=== PATIENT | female | born 1965 | race Caucasian/White ===

== ENCOUNTER 2016-12-22 05:35 | Outpatient (CLI) | payer SELFPAY ==
[~2016-12-22] VITALS: Ht 152.4 cm; Wt 117.5 kg
== END 2016-12-22 14:58 ==
LOC: PREOP 05:35
PROVIDERS: ATTEND Surgery
DX: Z01.818 Encounter for other preprocedural examination (principal); R19.5 Other fecal abnormalities

== ENCOUNTER 2016-12-26 07:26 | Day surgery (SDC) | payer OTHER ==
[~2016-12-26] VITALS: Ht 152.4 cm; Wt 122.0 kg
[2016-12-26 07:35] VITALS: BP 128/90
[2016-12-26] MEDS ORDERED: NALOXONE 0.4 MG/ML 1 ML (NARCAN) VIAL IVP PRN (07:45)
[2016-12-26] MEDS ORDERED: FLUMAZENIL (ROMAZICON) 0.1 MG/ML 5 ML VIAL INJ PRN (07:45)
[2016-12-26] MEDS ORDERED: NS IV 1000 ML 1,000 ML IV PRN (07:45)
[2016-12-26] MEDS ORDERED: NAPR550T PO (08:12)
[2016-12-26] MEDS ORDERED: IBUP200C75 PO (08:12)
[2016-12-26] MEDS ORDERED: fentaNYL INJECTION 100 MCG/2 ML AMP ONE (09:24)
[2016-12-26] MEDS ORDERED: proPOfol 200 MG/20 ML (DIPRIVAN) VIAL IV ONE (09:24)
--- NOTE | 2016-12-26 09:40 | Progress Note-Pre Operative ---
Pre-Operative Progress Note H&P Reviewed The H&P was reviewed, patient examined and no changes noted. Time Seen by Provider: 09:40 Date H&P Reviewed: Dec 26, 2016 Time H&P Reviewed: 09:40 Pre-Operative Diagnosis: change in bowel habits JOSE A LARSEN DO Dec 26, 2016 9:40 am
--- NOTE | 2016-12-26 10:13 | Discharge Inst-Simple/Standard ---
Discharge Inst-Standard Patient Instructions/Follow Up Plan of Care/Instructions/FU: Follow up with Dr. Mcintosh in 2 weeks Repeat colonoscopy in 5 years or sooner if changes to Bowel habits or blood in stool. Activity as Tolerated: Yes Discharge Diet: No Restrictions DANE GARCIA APRN Dec 26, 2016 10:13
--- NOTE | 2016-12-26 10:14 | Progress Note-Post Operative ---
Post-Operative Progess Note Surgeon (s)/Fast Food Manager (s) Surgeon JOSE A LARSEN DO Fast Food Manager: na Pre-Operative Diagnosis change in bowel habits Post-Operative Diagnosis colon polyps Procedure & Operative Findings Date of Procedure 12/26/16 Procedure Performed/Findings colonoscopy with hot bx polypectomy x 2 Anesthesia Type per green lumber grader Estimated Blood Loss Estimated blood loss (mL): none Specimens/Packing Specimens Removed ascending colon polyp x 2 JOSE A LARSEN DO Dec 26, 2016 10:14 am
[2016-12-26 10:35] VITALS: BP 127/62
[2016-12-26 10:57] VITALS: BP 117/69
--- NOTE | 2016-12-26 11:33 | OPERATIVE REPORT ---
DATE OF SERVICE: 12/26/2016 PREOPERATIVE DIAGNOSIS: Change in bowel habits. POSTOPERATIVE DIAGNOSIS: Ascending colon polyps. PROCEDURE: Colonoscopy with hot biopsy polypectomy x2. SURGEON: Dayna ANESTHESIA: Per FIXTURE REPAIRER FABRICATOR. ESTIMATED BLOOD LOSS: None. COMPLICATIONS: None. SPECIMEN: Ascending colon polyps. INDICATIONS: Patient is a 51-year-old female who has not had a screening colonoscopy. She has had a change in bowel habits. She understand the risks and benefits of procedure and wants to proceed with procedure. Consent was done and in the chart. PROCEDURE: Patient was taken to the endoscopy suite, placed in the left lateral recumbent position. A timeout was performed. Digital rectal exam was performed. There were no palpable polyps, masses or ulcerations. Scope was inserted into the rectum and advanced all the way to the cecum with minimal difficulty. Prep was adequate. There were no polyps, masses or ulcerations within the cecum. Scope was slowly retracted back and passed through the ileocecal and the ileum. Terminal ileum appears in normal appearance. Scope was then slowly retracted back into the colon, which was then continuously retracted back. Within the ascending colon, there were 2 small polyps for which hot biopsy polypectomy was performed on both of these. Scope was then slowly retracted back. There were no polyps, masses or ulcerations within the transverse colon, descending colon, sigmoid colon. In the rectum, the scope was retroflexed, noting no other pathology. Scope was returned to its normal position and slowly withdrawn until completely removed. Patient tolerated procedure well without any complications. She was taken to recovery room in stable condition. RECOMMENDATIONS: Patient will need a repeat colonoscopy in 5 years. If she has any problems prior to that, she should be reevaluated at that time. Patient will follow up in the office in 2 weeks to discuss pathology results. Job ID: [id number] DocumentID: [id number] Dictated Date: 12/26/2016 10:18:48 Block Trimmer Date: 12/26/2016 11:32:23 Dictated By: JOSE A LARSEN DO
[2016-12-26 11:40] VITALS: BP 117/69
== END 2016-12-26 11:40 | disposition home or self-care (01) ==
LOC: ENDO 07:26
PROVIDERS: ATTEND Surgery
DX: R19.4 Change in bowel habit (principal); D12.2 Benign neoplasm of ascending colon; E66.01 Morbid (severe) obesity due to excess calories; Z68.43 Body mass index [BMI] 50.0-59.9, adult
CPT/HCPCS: 84703; 88305